=== PATIENT | male | born 2000 | race Caucasian/White ===

== ENCOUNTER 2019-10-11 20:35 | Emergency (ER) | payer OTHER, SELFPAY ==
--- NOTE | ~2019-10-11 | XR_ITS ---
EXAMINATION: XR chest 2V 10/11/2019 21:05 INDICATION: Chest pain for 2 days PROCEDURE: 2 view chest COMPARISON: No prior studies for comparison. FINDINGS: The lungs are clear. The cardiomediastinal silhouette is within normal limits. There are no pleural effusions. There is no pneumothorax suspected. IMPRESSION: 1: NO ACUTE CARDIOPULMONARY DISEASE. Reviewed, dictated and finalized at location A.
[2019-10-11 20:40] VITALS: BP 132/82; PULSE 100; RESP 15; TEMP 37; O2SAT 100
--- NOTE | 2019-10-11 20:46 | ECG_ITS ---
Measurements Intervals [place] Rate: 63 P: 49 MT: 147 QRS: 69 QRSD: 72 T: 30 QT: 400 QTc: 411 Interpretive Statements SINUS RHYTHM ST ELEVATION IN DIFFUSE LEADS- PROBABLY EARLY REPOLARIZATION BORDERLINE ECG Electronically Signed On 10-12-2019 7:02:38 CDT by Jose Alberto Cuevas D.O.
[2019-10-11 21:03] LABS: Basophils Percent Auto 0.9 % (0.2-1.2); Eosinophils Absolute Auto 0.1 K/mm3 (0-0.3); Eosinophils Percent Auto 1.7 % (0-4.4); Hemoglobin 15.1 g/dL (14.0-18.0); Immature Granulocyte Absolute 0.01 K/mm3 (0.00-0.031); Immature Granulocyte Percent A 0.2 % (0-0.5); Lymphocytes Absolute Auto 1.45 K/mm3 (0.9-3.2); Lymphocytes Percent Auto 31.7 % (18.3-44.2); Mean Corpuscular HGB Conc 33.6 g/dl (32-36); Mean Corpuscular Hemoglobin 26.8 pg (26-34); Mean Corpuscular Volume 79.8 fl (80-100); Mean Platelet Volume 8.9 fl (7.4-10.4); Monocytes Absolute Auto 0.5 K/mm3 (0.1-0.6); Monocytes Percent Auto 11.4 % (2.6-8.5); Neutrophils Absolute Auto 2.5 K/mm3 (1.3-6.7); Neutrophils Percent Auto 54.1 % (45.5-73.1); Platelet Count Result 266 k/mm3 (150-375); Red Blood Count 5.64 M/mm3 (4.6-6.20); Red Cell Distribution Width 12.7 % (11.5-14.5); White Blood Count 4.6 K/mm3 (4.5-10.0)
[2019-10-11 21:12] LABS: INR 1.1
[2019-10-11 21:13] LABS: Partial Thromboplastin Time 34.9 SECONDS (22.3-36.8)
[2019-10-11 21:17] LABS: Blood Urea Nitrogen 24 mg/dL (9-20); Calcium 9.1 mg/dL (8.4-10.2); Carbon Dioxide 28 mmol/L (22-30); Chloride 99 mmol/L (98-107); Estimated Glomerular Filt Rate > 60; Glucose 93 mg/dL (75-110); Potassium 3.9 mmol/L (3.4-5.0); Sodium 135 mmol/L (137-145)
[2019-10-11 21:25] VITALS: BP 129/80; PULSE 62; RESP 14; O2SAT 100
[2019-10-11 21:28] LABS: Troponin I < 0.012 ng/mL (0.000-0.034)
--- NOTE | 2019-10-11 22:10 | ED.CHESTPAIN ---
HPI - Chest Pain General Chief Complaint: Chest Pain Stated Complaint: cp Time Seen by Provider: 10/11/19 21:37 History of Present Illness HPI narrative: Patient is a 19-year-old male who presents the ER with left-sided chest pain. Intermittent over the last 3 days. Last for 30 seconds to 1 minute. Sharp and pinpoint. Occasionally goes to his left arm with numbness going down the arm. No known trauma. 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 Has not found any aggravating or alleviating factors. No fevers or chills or sweats. Is without productive cough. Related Data Allergies Allergy/AdvReac Type Severity Reaction Status Date / Time No Known Drug Allergies Allergy Unknown Verified 08/02/17 18:21 Review of Systems Review of Systems: All systems reviewed & are unremarkable except as noted in HPI and below Constitutional: Constitutional: Denies chills and Denies fever(s) ENT: Denies nasal congestion and Denies sore throat Cardiovascular: Cardiovascular: Reports chest pain, Denies rapid heart rate and Reports radiating jaw, neck or arm pain Respiratory: Respiratory: Denies cough, Denies dyspnea and Denies wheezing Gastrointestinal: Gastrointestinal: Denies abdominal pain, Denies diarrhea, Denies nausea and Denies vomiting Musculoskeletal: Musculoskeletal: Denies back pain, Denies joint swelling and Denies muscle cramps PMFSH Past Medical History Medical History (Updated 10/11/19 @ 22:15 by Eamon Brooks MD) Healthy adult male Surgical History Surgical History (Updated 10/11/19 @ 22:12 by Eamon Brooks MD) No significant past surgical history Social History Social History Gender identity (if verbalized by the patient): Male Exam Narrative: Exam Narrative: GENERAL: Well-appearing, well-nourished, and in no acute distress. HEAD: Normocephalic, atraumatic. CHEST: Clear to auscultation. No respiratory distress. Reproducible chest pain with palpation. HEART: Regular rate and rhythm. Normal peripheral pulses. ABDOMEN: Soft, nontender, nondistended. EXTREMITIES: Normal range of motion. No edema. SKIN: Warm, dry, no rash. NEURO: Alert and oriented x3. PSYCH: Normal mood and affect. Course Course Emergency Course: Informed of results. Symptoms felt to be related to musculoskeletal injury. Recommend scheduled anti-inflammatories. Discharge home. Vital Signs Vital signs: Vital Signs Temperature 98.6 F 10/11/19 20:40 Pulse Rate 100 10/11/19 20:40 Respiratory Rate 15 10/11/19 20:40 Blood Pressure 132/82 10/11/19 20:40 Pulse Oximetry 100 10/11/19 20:40 Temperature 98.6 F 10/11/19 20:40 Pulse Rate 62 10/11/19 21:25 Respiratory Rate 14 10/11/19 21:25 Blood Pressure 129/80 10/11/19 21:25 Pulse Oximetry 100 10/11/19 21:25 MDM - Chest Pain Lab Data Result diagrams: 10/11/19 20:53 10/11/19 20:53 Labs: Lab Results 10/11/19 10/11/19 10/11/19 Range/Units 20:53 20:53 20:53 WBC 4.6 (4.5-10.0) K/mm3 RBC 5.64 (4.6-6.20) M/mm3 Hgb 15.1 (14.0-18.0) g/dL Hct 45.0 (42.0-52.0) % MCV 79.8 L (80-100) fl MCH 26.8 (26-34) pg MCHC 33.6 (32-36) g/dl RDW 12.7 (11.5-14.5) % Plt Count 266 (150-375) k/mm3 MPV 8.9 (7.4-10.4) fl Immature Gran % (Auto) 0.2 (0-0.5) % Neut % (Auto) 54.1 (45.5-73.1) % Lymph % (Auto) 31.7 (18.3-44.2) % [place] % (Auto) 11.4 H (2.6-8.5) % Eos % (Auto) 1.7 (0-4.4) % Baso % (Auto) 0.9 (0.2-1.2) % Lymph # (Auto) 1.45 (0.9-3.2) K/mm3 [place] # (Auto) 0.5 (0.1-0.6) K/mm3 Eos # (Auto) 0.1 (0-0.3) K/mm3 Baso # (Auto) 0.0 (0.0-0.1) K/mm3 Abs Immat Gran (auto) 0.01 (0.00-0.031) K/mm3 Absolute Neuts (auto) 2.5 (1.3-6.7) K/mm3 Absolute Nucleated RBC 0.0 (0.0-0.012) K/mm3 Nucleated RBC % 0.0 (0.0-0.2) % PT 14.0 (11.1-14.7) Seconds INR 1.1 APTT 34.9 (22.3-36.8) SECONDS [place]
[2019-10-11 22:15] VITALS: BP 139/87; PULSE 58; RESP 19; O2SAT 97
== END 2019-10-11 22:20 | disposition home or self-care (01) ==
PROVIDERS: Emergency Provider Emergency Medicine; PCP Internal Medicine
DX: R07.89 Other chest pain (principal)
CPT/HCPCS: 36415; 71046; 80048; 84484; 85025; 85610; 85730; 93005; 99284